=== PATIENT | female | born 1970 | race Caucasian/White ===

== ENCOUNTER 2018-05-30 16:17 | Emergency (ER) | payer OTHER ==
[~2018-05-30] VITALS: Ht 160 cm; Wt 71.0 kg
[2018-05-30 16:22] VITALS: BP 126/80
[2018-05-30] MEDS ORDERED: TETanus/Pertussis (Acell)/Diphther VAC/PF (Tdap-Adult) 0.5ml syringe IM ONE (16:45)
== END 2018-05-30 17:06 | disposition home or self-care (01) ==
LOC: ER 16:17
DX: S61.011A Laceration without foreign body of right thumb without damage to nail, initial encounter (principal); W22.8XXA Striking against or struck by other objects, initial encounter; Y93.89 Activity, other specified; Y92.89 Other specified places as the place of occurrence of the external cause; Y99.8 Other external cause status
CPT/HCPCS: 90471; 90715; 99283

== ENCOUNTER → 2021-05-02 | Outpatient (CLI) | payer OTHER | END | disposition home or self-care (01) | LOC: LAB 11:23 | PROVIDERS: ATTEND Internal Medicine Infectious Disease | DX: U07.1 COVID-19 (principal) | CPT/HCPCS: 87635; C9803 ==

== ENCOUNTER 2024-09-04 01:54 | Emergency (ER) | payer OTHER ==
[~2024-09-04] VITALS: Ht 160 cm; Wt 69.7 kg
[2024-09-04 01:57] VITALS: TEMP 96.4
--- NOTE | 2024-09-04 02:14 | ELECTROCARDIOGRAPH REPORT ---
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 Marley Colbert Measurements Intervals [place] Rate: 66 P: 53 ID: 121 QRS: 54 QRSD: 92 T: 34 QT: 397 QTc: 416 Interpretive Statements Sinus rhythm RSR' in V1 or V2, right VCD or RVH Electronically Signed On 09-04-2024 3:23:[address] Marley Colbert Please click the below link to view image of tracing.
[2024-09-04 02:27] LABS: BASOPHILS # (AUTO) 0.1 X10'3 (0-0.2); BASOPHILS % (AUTO) 0.7 % (0-1); EOSINOPHILS # (AUTO) 0.1 X10'3 (0-0.9); HEMATOCRIT 40.8 % (35.0-45.0); LYMPHOCYTES # (AUTO) 3.9 X10'3 (1.1-4.8); MEAN CORPUSCULAR HEMOGLOBIN 28.8 PG (27.0-31.0); MEAN CORPUSCULAR HGB CONC 34.2 g/dL (33.0-36.5); MEAN CORPUSCULAR VOLUME 84.2 FL (78-98); MEAN PLATELET VOLUME 8.2 FL (7.4-10.4); MONOCYTES # (AUTO) 0.5 X10'3 (0-0.9); NEUTROPHILS # (AUTO) 5.2 X10'3 (1.8-7.7); NEUTROPHILS % (AUTO) 53.3 % (42-75); PLATELET COUNT 264 X10'3 (140-440); RED BLOOD COUNT 4.85 X10'6 (4.20-5.60); RED CELL DISTRIBUTION WIDTH 13.2 % (11.5-14.5); WHITE BLOOD COUNT 9.7 X10'3 (4.5-11.0)
[2024-09-04 02:40] LABS: ALANINE AMINOTRANSFERASE 32 U/L (12-78); ALBUMIN 3.9 G/DL (3.4-5.0); ALKALINE PHOSPHATASE 82 IU/L (46-116); AMYLASE 39 U/L (25-115); ANION GAP 5 (8-16); ASPARTATE AMINO TRANSFERASE 19 U/L (10-37); BILIRUBIN,TOTAL 0.4 MG/DL (0.1-1.0); BLOOD UREA NITROGEN 10 MG/DL (7-18); BUN/CREATININE RATIO 15.4 (10.0-20.0); CALCIUM 8.7 MG/DL (8.5-10.1); CHLORIDE 102 MMOL/L (99-107); CREATININE 0.65 MG/DL (0.40-0.90); GLUCOSE 134 MG/DL (70-104); LIPASE 54 U/L (16-77); POTASSIUM 3.9 MMOL/L (3.5-5.1); SODIUM 134 MMOL/L (135-145); TOTAL CARBON DIOXIDE 27.3 MMOL/L (24-32); TOTAL PROTEIN 7.7 G/DL (6.4-8.2); eCRCL 83 ML/MIN; eGFR > 90 ML/MIN
--- NOTE | 2024-09-04 03:29 | Physician Documentation ---
History of Present Illness Chief Complaint: Abdominal Pain Stated Complaint: ABDOMINAL PAIN Time Seen by MD: 03:24 OK to notify your PCP?: Yes Primary Medical Doctor: KAMI CANCHOLA Source: patient, family, RN/, RN notes reviewed, old records Mode of Arrival: POV Exam Limitations: no limitations HPI 54 year old female, with no significant past medical history, presents complaining of epigastric/right upper abdominal tenderness beginning around 1930 this evening. Pain has been constant, worsening, and nonradiating. She has not noted any alleviating or exacerbating factors for her symptoms. She denies any treatment for pain. She notes similar pain 2 weeks ago, for which she saw her primary care physician, who ordered EGD and ultrasound, which have not been approved by insurance. Since the first episode of pain, patient went on a "bland" diet, however today she ate [place] food for lunch. Around 1829 she had dinner, which consisted of sesame sticks, apple sauce, and mangos. Approximately one hour later pain began. Medication Reconciliation Allergies: Uncoded Allergies: EGGS (Allergy, Severe, Uticaria, 09/04/24) Scheduled PRN Hydrocodone Bit/Acetaminophen 5/325 MG ([place] 5/325 MG), 1 TAB PO Q12H PRN PRN for pain Past Medical History Past Medical History: No Pertinent History Past Surgical History: no surgical history Smoking Status: Never smoker Drug Use: none Lives In: Home Occupation: employed Review of Systems All Other Systems at this time: Reviewed and Negative ROS As stated above in the HPI, otherwise all systems are reviewed and negative. Physical Exam Vital Signs: RN Vital Signs have been reviewed: Yes, Temperature: 96.4, Source: Oral, Heart Rate: 63, Respiratory Rate: 15, BP: 117/67, Pulse Oximetry: 99, Weight: 69.700 Oxygen Flow Rate: 0 Pulse Oximetry Reflects: adequate oxygenation Physical Exam General: The patient is well developed, well nourished, nontoxic appearing and is in no acute distress. Skin: [place], warm and dry with no rashes. HEENT: Head was normocephalic and atraumatic. Chest: Clear to auscultation bilaterally without wheezes, rales or rhonchi. No accessory muscle use. No dullness to percussion. Heart: Rate regular and rhythmic. S1, S2. No murmurs. Palpation of the chest wall was normal. No rubs or thrills. Abdomen: Epigastric and RUQ TTP. Soft and nondistended. Positive bowel sounds. No guarding or rebound. Extremities: No cyanosis, clubbing or edema. The patient moves all extr emities. Pulses were equal and symmetric. Neurologic: Motor and sensation grossly intact. Cranial nerves II-XII grossly intact. A & O x4. Psychologic: Normal mood and affect. No agitation. Progress Progress Note 0525: Spoke with the patient and her regarding options for admission and surgical consultation or discharge and outpatient follow up. 0551: Patient wishes to have surgical consultation in the hospital. Results/Orders Reviewed/noted all lab results: Yes Results/Orders Orders - SAUL GOODMAN MD Urinalysis, Cult If Indicated (09/04/24 02:04) Hcg, Ur Ql (09/04/24 02:04) Monitor (09/04/24 02:04) Straight Cath For Urine Sample (09/04/24 02:04) Electrocardiogram (09/04/24 02:04) Abdomen,Single View(Kub) (09/04/24 03:27) Completed Orders - SAUL GOODMAN MD Cbc/Diff (09/04/24 02:04) BMP (09/04/24 02:04) Amylase (09/04/24 02:04) Lipase (09/04/24 02:04) CMP (09/04/24 02:04) Electrocardiogram (09/04/24 02:04) Vital Signs 09/04/24 09/04/24 09/04/24 01:57 02:27 02:27 Temp 96.4 Pulse 68 63 Resp 16 15 B/P (MAP) 134/75 117/67 (84) Pulse Ox 100 99 O2 Flow Rate 0 0 Laboratory Tests Test 09/04/24 02:17 White Blood Count 9.7 Red Blood Count 4.85 Hemoglobin 14.0 Hematocrit 40.8 Mean Corpuscular Volume 84.2 Mean Corpuscular Hemoglobin 28.8 Mean Corpuscular Hemoglobin Concent 34.2 Red Cell Distribution Width 13.2 Platelet Count 264 Mean Platelet Volume 8.2 Neutrophils (%) (Auto) 53.3 Lymphocytes (%) (Auto) 40.0 Monocytes (%) (Auto) 5.0 Eosinophils (%) (Auto) 1.0 Basophils (%) (Auto) 0.7 Neutrophils # (Auto) 5.2 Lymphocytes # (Auto) 3.9 Monocytes # (Auto) 0.5 Eosinophils # (Auto) 0.1 Basophils # (Auto) 0.1 CBC Comment Sodium Level 134 L Potassium Level 3.9 Chloride Level 102 Carbon Dioxide Level 27.3 Anion Gap 5 L Blood Urea Nitrogen 10 Creatinine 0.65 Estimated GFR/1.73 m2 > 90 BUN/Creatinine Ratio 15.4 Glucose Level 134 H Calcium Level 8.7 Total Bilirubin 0.4 Aspartate Amino Transf (AST/SGOT) 19 Alanine Aminotransferase (ALT/SGPT) 32 Alkaline Phosphatase 82 Total Protein 7.7 Albumin 3.9 Globulin 3.8 Albumin/Globulin Ratio 1.0 L Amylase Level 39 Lipase 54 Chemistry Comments Re-Evaluation Re-Evaluation : Re-Evaluation: Improved Progress Patient was seen and examined. Patient was given reassurance. Patient had excruciating severe pain. Patient change her diet but tonight had an additional episode. Despite eating a very bland on exciting non fatty meal. She denies any pain radiating to the back. Laboratory work was reassuring ultrasound showed multiple mobile stones. Cat scan was obtained. Pain is improved. Patient was requesting to be discharged home was offered surgery. Patient is otherwise in good health and was discharged home. CBC shows a WBC of 9.7 chemistry within normal limits. Bilirubin 0.4 AST 19 ALT 32 alk-phos 82 lipase 54. Urinalysis within normal limits hCG is negative. 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 Saul Goodman Measurements Intervals [place] Rate: 66 P: 53 MI: 121 QRS: 54 QRSD: 92 T: 34 QT: 397 QTc: 416 Interpretive Statements Sinus rhythm RSR' in V1 or V2, right VCD or RVH Electronically Signed On 09-04-2024 3:23:[address] Saul Goodman (interpreted by me) Chest X-Ray : Additional Comments ABDOMINAL RADIOGRAPH Indication: pain Technique: Single frontal view of the abdomen was obtained Comparison: None FINDINGS: Lines and tubes: None Diffuse stool throughout the colon. There is a nonobstructive bowel gas pattern. No supine radiographic evidence of pneumoperitoneum. Bony structures unremarkable. Intrauterine device in the pelvis. IMPRESSION: 1. Constipation. No dilated bowel loops. Reviewed by me, Dr. Goodman. CT : Impression Ordering Physician: SAUL GOODMAN MD Exam: CT ABDOMEN PELVIS CLINICAL INFORMATION: Abdominal pain. TECHNIQUE: Axial CT images of the abdomen and pelvis were obtained without IV contrast. Coronal and sagittal reformatted images were obtained, reviewed, and stored. Evaluation of the parenchymal organs is limited without IV contrast. Evaluation of the bowel and mesentery is limited without oral contrast. All CT scans at this medical facility are performed using dose modulation techniques as appropriate to a performed exam including the following: Automated exposure control was utilized; adjustment of the MA and/or KV according to patient size; and use of iterative reconstruction technique. CTDIvol = 12.63 mGy DLP = 593.9 mGy-cm COMPARISON: None FINDINGS: Lung bases: Lung bases are clear. Liver: Hepatic steatosis. Focal fatty sparing near the gallbladder fossa. Biliary: Multiple gallstones in the gallbladder. Possible trace pericholecystic fluid. Spleen: Unremarkable. Pancreas: Grossly unremarkable in its noncontrast enhanced appearance. Adrenal glands: Unremarkable. No mass. Kidneys: No hydronephrosis. No renal or ureteral calculi. Nonspecific lobulated contour of the kidneys bilaterally. No definite mass visualized on limited noncontrast enhanced CT. Aorta/Vascular: No aneurysm or significant calcification. Retroperitoneum: No mass or lymphadenopathy. Bowel/mesentery: Nonspecific nondilated fluid-filled small bowel loops. No small bowel obstruction. Appendix is visualized and appears unremarkable. Moderate stool in the colon. Scattered colonic diverticula without adjacent inflammatory changes to suggest diverticulitis. Pelvic organs: Uterus is anteverted. IUD in the fundal endometrial canal. Lobulated contour of the uterus with suspected fibroid along its ventral aspect. Bladder: Unremarkable. No mass. Abdominal wall: Small fat containing umbilical hernia. Bones: No acute fracture or suspicious intraosseous lesion. IMPRESSION: 1. Cholelithiasis. 2. Hepatic steatosis. 3. Scattered colonic diverticula without adjacent inflammatory changes to suggest diverticulitis. 4. Nonspecific nondilated fluid-filled small bowel loops. Findings may be seen with ileus or enteritis in the appropriate clinical setting. No small bowel obstruction. 5. Small fat containing umbilical hernia. 6. Fibroid uterus with IUD in expected position in the fundal endometrial canal. 7. Additional findings as described above. Ultrasound : Interpreted By: radiologist Ultrasound of: abdomen Impression Technologist preliminary impression: Multiple stones seen in the gallbladder, appear mobile. With gallbladder wall thickening measuring 4.2 mm. Positive Espana's sign. reviewed by Dr. Rex major Ordering Physician: SAUL GOODMAN MD Exam: ULTRASOUND OF ABDOMEN INDICATION: ruq/epigastric pain TECHNIQUE: Multiple real-time sonographic images were obtained of the right upper quadrant. COMPARISON: None FINDINGS: The liver demonstrates homogeneous echotexture without focal mass lesions. The liver measures 13.9 cm. Right hepatic lobe cyst measures 0.8 cm. There is no intrahepatic or extrahepatic ductal dilatation. The common duct is not visualized. Cholelithiasis. The gallbladder wall measures 0.4 cm and is thickened. The right kidney measures 10.6 cm. The right kidney is normal in contour, size, and shape. The echogenicity is normal. There is no hydronephrosis. The pancreas is not well visualized due to overlying bowel gas. IMPRESSION: Cholelithiasis with mild thickened gallbladder wall and positive sonographic espana's sign. Electronically Signed by:JOSEPH BLOUNT MD Date & Time: 09/04/24 0538 Medical Decision Making Additional info obtained from: old records Differential Dx:Considerations: Include: Bowel obstruction, Cholangitis, Cholelithasis, Esophagitis, Gastritis/PUD, Gastroenteritis, GI hemorrhage, Hernia, Hepatitis, Inflammatory BD, Ischemic bowel, Ovarian cyst/torsion, Pancreatitis, Urinary obstruction, Urinary tract infection, Urolithiasis, Other Departure Disposition: 01 HOME / SELF CARE / HOMELESS Impression: Primary Impression: Cholelithiasis Qualified Codes: K80.80 - Other cholelithiasis without obstruction Condition: Stable Discharge Instructions: Cholelithiasis, [id number] Additional Instructions: Follow up with your regular doctor and Dr. Saenz, surgeon. Take ibuprofen for pain. Avoid fatty foods. Return to the ER for persistent pain, worsening pain, fever, vomiting, or any other concerns. Referrals: EZRA SAENZ MD Prescriptions Hydrocodone Bit/Acetaminophen 5/325 MG ([place] 5/325 MG) 5 Mg/325 Mg Tablet 1 TAB PO Q12H PRN PRN for pain for 5 Days, #10 TAB Prov: SAUL GOODMAN MD 09/04/24 Education Educated: Patient, Family Educated regarding: diagnosis, treatment, prognosis, need for follow up, other Additional Comment Additional Comment Patient was offered admission and surgery for recurrent episodes of cholelithiasis. Patient opted to go home instead. Signature Scribe Signature: Scribed for Saul Goodman MD by Brielle England . 09/04/24 03:39 Attestation: The note accurately reflects work and decisions made by me.Saul Goodman MD 09/04/24 03:29 SAUL GOODMAN MD September 04, 2024 03:29 BRIELLE MACIEL September 04, 2024 03:51
[2024-09-04 04:02] LABS: URINE HCG NEGATIVE (NEG)
[2024-09-04 04:10] LABS: BILIRUBIN,URINE NEGATIVE (Neg); CLARITY,URINE CLEAR (Clear); COLOR,URINE YELLOW (Yellow); GLUCOSE, URINE NEGATIVE (Neg); KETONES,URINE NEGATIVE (Neg); LEUKOCYTE ESTERASE ,URINE NEGATIVE (Neg); NITRITES, URINE NEGATIVE (Neg); OCCULT BLOOD,URINE TRACE-INTACT (Neg); PROTEIN,URINE NEGATIVE (Neg); UROBILINOGEN,URINE 0.2 E.U/dL (0.2-1.0)
[2024-09-04 04:12] LABS: UA COLLECTION TYPE CLN CATCH MIDSTREAM
[2024-09-04 04:26] LABS: BACTERIA,URINE NONE SEEN /HPF (Neg); RBC,URINE NONE SEEN /HPF (0-2); SQUAMOUS EPITHELIAL CELL,UR FEW /LPF (FEW); WBC,URINE NONE SEEN /HPF (0-4)
--- NOTE | 2024-09-04 04:57 | RADIOLOGY REPORT ---
ABDOMINAL RADIOGRAPH Indication: pain Technique: Single frontal view of the abdomen was obtained Comparison: None FINDINGS: Lines and tubes: None Diffuse stool throughout the colon. There is a nonobstructive bowel gas pattern. No supine radiograph ic evidence of pneumoperitoneum. Bony structures unremarkable. Intrauterine device in the pelvis. IMPRESSION: 1. Constipation. No dilated bowel loops.
--- NOTE | 2024-09-04 05:41 | RADIOLOGY REPORT ---
INDICATION: ruq/epigastric pain TECHNIQUE: Multiple real-time sonographic images were obtained of the right upper quadrant. COMPARISON: None FINDINGS: The liver demonstrates homogeneous echotexture without focal mass lesions. The liver measu res 13.9 cm. Right hepatic lobe cyst measures 0.8 cm. There is no intrahepatic or extrahepatic ductal dilatation. The common duct is not visualized. Cholelithiasis. The gallbladder wall measures 0.4 cm and is thickened. The right kidney measures 10.6 cm. The right kidney is normal in contour, size, and shape. The echoge nicity is normal. There is no hydronephrosis. The pancreas is not well visualized due to overlying bowel gas. IMPRESSION: Cholelithiasis with mild thickened gallbladder wall and positive sonographic simpson's sign.
[2024-09-04] MEDS ORDERED: HYDR-3965 PO (06:52)
--- NOTE | 2024-09-04 07:16 | RADIOLOGY REPORT ---
CLINICAL INFORMATION: Abdominal pain. TECHNIQUE: Axial CT images of the abdomen and pelvis were obtained without IV contrast. Coronal and s agittal reformatted images were obtained, reviewed, and stored. Evaluation of the parenchymal organs is limited without IV contrast. Evaluation of the bowel and mesentery is limited without oral contras t. All CT scans at this medical facility are performed using dose modulation techniques as appropriat e to a performed exam including the following: Automated exposure control was utilized; adjustment of the MA and/or KV according to patient size; and use of iterative reconstruction technique. CTDIvol = 12.63 mGy DLP = 593.9 mGy-cm COMPARISON: None FINDINGS: Lung bases: Lung bases are clear. Liver: Hepatic steatosis. Focal fatty sparing near the gallbladder fossa. Biliary: Multiple gallstones in the gallbladder. Possible trace pericholecystic fluid. Spleen: Unremarkable. Pancreas: Grossly unremarkable in its noncontrast enhanced appearance. Adrenal glands: Unremarkable. No mass. Kidneys: No hydronephrosis. No renal or ureteral calculi. Nonspecific lobulated contour of the kidney s bilaterally. No definite mass visualized on limited noncontrast enhanced CT. Aorta/Vascular: No aneurysm or significant calcification. Retroperitoneum: No mass or lymphadenopathy. Bowel/mesentery: Nonspecific nondilated fluid-filled small bowel loops. No small bowel obstruction. A ppendix is visualized and appears unremarkable. Moderate stool in the colon. Scattered colonic diver ticula without adjacent inflammatory changes to suggest diverticulitis. Pelvic organs: Uterus is anteverted. IUD in the fundal endometrial canal. Lobulated contour of the u terus with suspected fibroid along its ventral aspect. Bladder: Unremarkable. No mass. Abdominal wall: Small fat containing umbilical hernia. Bones: No acute fracture or suspicious intraosseous lesion. IMPRESSION: 1. Cholelithiasis. 2. Hepatic steatosis. 3. Scattered colonic diverticula without adjacent inflammatory changes to suggest diverticulitis. 4. Nonspecific nondilated fluid-filled small bowel loops. Findings may be seen with ileus or enteriti s in the appropriate clinical setting. No small bowel obstruction. 5. Small fat containing umbilical hernia. 6. Fibroid uterus with IUD in expected position in the fundal endometrial canal. 7. Additional findings as described above.
[2024-09-04 07:31] VITALS: BP 120/74; PULSE 68; RESP 16; O2SAT 98
[2024-09-04] MEDS ORDERED: LIDOcaine 1% 30ml preserv. free vial ONE (12:33)
[2024-09-04] MEDS ORDERED: BUPIVAcaine 2.5mg/ml inj 50ml vial (contains preservative) ONE (12:34)
== END 2024-09-04 07:37 | disposition home or self-care (01) ==
LOC: ER 01:55 → EEVIPCON 01:55 → ER 07:37
DX: K80.20 Calculus of gallbladder without cholecystitis without obstruction (principal)
CPT/HCPCS: 36415; 74018; 74176; 76700; 80053; 81001; 81025; 82150; 83690; 85025; 93005; 99285; J2003; J3490

== ENCOUNTER 2024-09-04 13:09 | Observation (INO) | payer OTHER ==
[2024-09-04] VITALS (24 sets, daily range): BP systolic 106–142; BP diastolic 59–87; PULSE 50–97; RESP 10–21; TEMP 97.4; O2SAT 90–100
[~2024-09-04] VITALS: Ht 160 cm; Wt 67.4 kg
[~2024-09-04 13:09] MED LIST: HYDR-3965 PO; ringers solution, lacted 1,000 ML IV SCH
[2024-09-04] MEDS ORDERED: ondansetron/PF 4mg/2ml inj IV PRN (13:20)
[2024-09-04] MEDS ORDERED: fentaNYL/PF 50MCG/1 ML 2ML syringe IV PRN (13:20)
[2024-09-04] MEDS ORDERED: ringers solution, lacted 1,000 ML IV SCH (13:20)
[2024-09-04] MEDS ORDERED: hydrALAZINE 20mg/ml inj. IV PRN (13:20)
[2024-09-04] MEDS ORDERED: labetalol 20mg/4ml (5mg/ml) syringe IV PRN (13:20)
[2024-09-04] MEDS ORDERED: ondansetron/PF 4mg/2ml inj ONE (13:29)
[2024-09-04] MEDS ORDERED: LIDOcaine 2% (20mg/ml) 5ml vial ONE (13:29)
[2024-09-04] MEDS ORDERED: propofol inj 20 ML IV ONE (13:29)
[2024-09-04] MEDS ORDERED: dexamethasone sod phosphate 4mg/ml inj. ONE (13:29)
[2024-09-04] MEDS ORDERED: rocuronium 10mg/ml inj IV ONE (13:29)
[2024-09-04] MEDS: INDOCYANINE GREEN 25 MG/10 ML VIAL IV ONE (13:53)
[2024-09-04] MEDS: pantoprazole 40 MG vial IV ONE (13:53)
[2024-09-04] MEDS ORDERED: sevoflurane 250ml liquid IH ONE (14:45)
[2024-09-04] MEDS ORDERED: fentaNYL/PF 50MCG/1 ML 2ML syringe ONE (14:51)
[2024-09-04] MEDS ORDERED: midazolam 1 mg/ML 2ml injection ONE (14:53)
[2024-09-04] MEDS ORDERED: acetaminophen 1,000mg/100ml IV 100 ML IV ONE (15:01)
[2024-09-04] MEDS ORDERED: neostigmine methylsulfate 1 MG/ML 10ml vial ONE (15:37)
[2024-09-04] MEDS ORDERED: glycopyrrolate 0.2mg/ml inj ONE (15:37)
[2024-09-04] MEDS ORDERED: ondansetron 4mg rapidly disintigrating tab PO PRN (16:15)
--- NOTE | 2024-09-04 16:34 | OPERATIVE REPORT ---
Operative Report Providers to CC CC: EVERARDO SAENZ MD ~ Date of Procedure: September 04, 2024 Pre-Operative Diagnosis: acute cholecystitis Post-Operative Diagnosis Acute calculous cholecystitis 2 cm umbilical hernia Procedure Performed Robotic assisted, laparoscopic cholecystectomy 2 cm umbilical hernia repair Surgeon: Everardo Saenz MD FACS Manager Of Warehouse None Anesthesiologist: Nuno Navarro (Cancer so I can and freeing the answer is very small It was secure stitches out couple inches good for a really CXR Carina and umbilical more time at the was recurrent left NSTEMI click moving so much weight slight going little sister only gotten loose. Everardo Saenz I know I just there through) Type of Anesthesia: General (Two) Findings: 2 cm umbilical hernia Acute calculous cholecystitis Complications None Prosthetics\Implants used: None Estimated Blood Loss: Minimal Specimen Removed: Gallbladder Description of Procedure: Patient was brought to the operating room and identified by the nursing staff and the attending physician. Patient was placed supine and general anesthesia was induced. A supraumbilical, midline incision was made, long enough to accommodate a 12 mm Rios port. Rios technique was used to gain entry into the abdomen. During dissection, moderate-sized hernia sac was encountered that was adherent to the underside of the umbilical dermis. This was mobilized away and opened. Preperitoneal fat was reduced. Excess hernia sac was excised and discarded. Hernia defect measured 2 cm and was used for Rios port placement. Stay sutures were placed in the Rios port anchored to the fascia. Abdomen was insufflated without incident. Laparoscope was inserted and the abdomen surveyed. Secondary, 8.5 mm robotic trochars were placed in the left upper quadrant and right lateral abdomen. Robotic arm was docked to the patient. Robotic instruments were guided intra- abdominally under laparoscopic visualization. Fundus of the gallbladder was grasped and retracted over the dome of the liver. Gallbladder was edematous, inflamed and there was notable pericholecystic fluid. Using firefly, midline contrast was in the gallbladder and only noted just near the infundibulum. Infundibulum was retracted towards the right lower quadrant. Firefly technology was used to obtain a fluorescent cholangiogram and visualize the pertinent anatomy. Cystic duct was clearly visualized. Peritoneum overlying the triangle was incised with hook electrocautery. This allowed for circumferential dissection of the cystic duct and artery. Critical view of safety was obtained. Duct and artery were then clipped with hemo-lock clips and both structures divided. Gallbladder was retracted laterally and dissected out of the gallbladder fossa. Gallbladder was set aside and fluorescent cholangiogram of the gallbladder fossa was used to confirm no evidence of bile leak. Gallbladder was placed in a laparoscopic retrieval bag. Secondary trochars wer e removed and the abdomen allowed to deflate. Rios port was removed with the specimen in its retrieval bag. Fascia at the umbilical port site was closed with a combination of 0 Ethibond and 0 Vicryl sutures, thus repairing the umbilical hernia defect. Skin was closed with 4-0 Monocryl sutures in a subcuticular fashion About 40 cc of local anesthetic was used during the case. Sterile dressings were applied. Patient was awakened and taken to the postanesthesia care unit in stable condition. Counts repoted as correct: Yes EVERARDO SAENZ MD September 04, 2024 16:34
[2024-09-04] MEDS: morphine 2 MG/ML inj. syringe IV PRN (17:03)
[2024-09-04] MEDS: morphine 4 MG/ML inj SYRINge IV PRN (17:11)
[2024-09-04] MEDS: fentaNYL/PF 50MCG/1 ML 2ML syringe IV PRN (17:22)
[2024-09-04] MEDS: oxyCODONE/APAP 5-325mg tablet PO PRN (18:16)
[2024-09-04] MEDS: ondansetron/PF 4mg/2ml inj IV ONE (19:09)
--- NOTE | 2024-09-07 17:28 | PATHOLOGY REPORT ---
[facility] [address] [place] [address] SURGICAL PATHOLOGY REPORT CaseNumber: [id number] Surgeon:Everardo Wells NP CLINICAL INFORMATION CLINICAL INFORMATION: Calculus of gallbladder. DIAGNOSIS DIAGNOSIS: GALLBLADDER; ROBOTIC-ASSISTED LAPAROSCOPIC SEGUN - CHOLELITHIASIS. - MILD CHRONIC AND MINIMAL SUBACUTE CHOLECYSTITIS. - CHOLESTEROLOSIS. - NEGATIVE FOR DYSPLASIA AND MALIGNANCY. - CYSTIC DUCT LYMPH NODE WITH PROMINENT BENIGN LYMPHOID HYPERPLASIA, NEGATIVE FOR MALIGNANCY. MICROSCOPIC DESCRIPTION MICROSCOPIC DESCRIPTION: Performed. (st) GROSS DESCRIPTION GROSS DESCRIPTION: Received in a container of formalin labeled with the patient's name, number, and " Gallbladder" is an intact gallbladder which measures 9 cm long by 3.5 cm in diameter. The serosa is s mooth, shiny, and purple-zelaya. The surgical bed is unremarkable. Sectioning reveals a moderate amount of viscous dark green bile and approximately 20 faceted zelaya-black stones which measure up to 1.5 cm. The mucosa is mildly fibrotic but a discrete mass lesion is not identified. The wall of the gallbladd er measures up to 0.6 cm thick. Distribution Driver sections of the neck and wall of the gallbladder are s ubmitted as A1.The time at which the specimen was removed was not provided. The time at which the spe cimen was placed in formalin was not provided. Electronically signed by: Clifton Sauer D.O. 09/07/2024 4:50:00 PM
== END 2024-09-04 20:17 | disposition home or self-care (01) ==
LOC: OR 13:09 → PAS IN 13:10 → EEVIPCON 13:10
PROVIDERS: ADMIT Surgery; ATTEND Surgery
DX: K80.12 Calculus of gallbladder with acute and chronic cholecystitis without obstruction (principal); K42.9 Umbilical hernia without obstruction or gangrene; R60.9 Edema, unspecified; Z79.899 Other long term (current) drug therapy; Z98.890 Other specified postprocedural states
CPT/HCPCS: 47562; 49591; 96374; 96375; 96376; G0378; J0131; J0690; J1100; J2003; J2250; J2270; J2405; J2470; J2704; J2710; J3010; J3490; J7120; S2900; A4215; A4615; A4618; A6449; A7000